=== PATIENT | female | born 1955 | race Caucasian/White ===

== ENCOUNTER 2018-02-12 17:05 | Inpatient (IN) | payer SELFPAY ==
[~2018-02-12] VITALS: Ht 160 cm; Wt 79.8 kg
[2018-02-12 18:35] VITALS: BP 125/61; PULSE 91; RESP 16; TEMP 99.3; O2SAT 93
[2018-02-12] MEDS ORDERED: RITA20TA PO (19:05)
[2018-02-12] MEDS ORDERED: CELE40TA PO (19:05)
[2018-02-12] MEDS ORDERED: LISI10TA PO (19:05)
[2018-02-12] MEDS ORDERED: CLON1TAB PO (19:05)
[2018-02-12] MEDS ORDERED: LEVO88TA2 PO (19:05)
[2018-02-12] MEDS ORDERED: SODIUM CHLOR 0.9% 1000 ML INJ 1,000 ML IV SCH (19:07)
--- NOTE | 2018-02-12 19:08 | PD ---
HPI Chief Complaint: GI Complaint Time Seen by Provider: 18:44 Travel History International Travel<30 days: No Contact w/Intl Traveler<30days: No Traveled to known affect area: No History of Present Illness HPI 62-year-old female with history of hypertension and thyroid disease presents emergency department for evaluation of generalized weakness. Patient states about 2 weeks ago she started what is called the Miriam diet. She had been doing this and compliant with the regimen and developed joint pain and stiffness. She has felt increasingly tired and weak. She states on Monday, 3 days ago, she passed out. There is no obvious trauma sustained during this. She saw her primary care provider today. She did report darker bowel movements over the last 2-3 days. With knowledge of this, her primary care provider advised she come to the emergency department. Patient denies any significant pain. Just an achy joint moderate pain that is constant. She does report subjective fever with chills over the last 2-3 days as well. She tells me that she is so weak she can hardly do her daily routines. She denies any chest pain or tightness. She denies any nausea or vomiting. She has had no urinary symptoms or diarrhea. She has no other symptoms to report. [facility] Past Medical History ADD: Yes ADHD: Yes Hypertension: Yes Thyroid Disease: Yes Tetanus Vaccination: > 5 Years Influenza Vaccination: No Past Surgical History Section: Yes Social History Alcohol Use: Yes Tobacco Use: No Substance Use: No Allergies-Medications (Allergen,Severity, Reaction): Coded Allergies: ceftriaxone (Verified Allergy, Unknown, 02/12/18) Reported Meds & Prescriptions Reported Meds & Active Scripts Active Reported Levothyroxine (Levothyroxine Sodium) 88 Mcg Tab 88 Mcg PO DAILY Ritalin IR (Methylphenidate HCl) 20 Mg Tab 30 Mg PO DAILY Lisinopril-Hctz 10-12.5 Mg Tab 1 Tab PO DAILY Celexa (Citalopram Hydrobromide) 40 Mg Tab 40 Mg PO HS Clonazepam 1 Mg Tab 1 Mg PO HS Review of Systems Except as stated in HPI: all other systems reviewed are Neg Physical Exam Narrative GENERAL: Ill-appearing female patient, lying in bed, in no acute distress SKIN: Focused skin assessment warm/dry. HEAD: Atraumatic. Normocephalic. EYES: Pupils equal and round. No scleral icterus. No injection or drainage. ENT: No nasal bleeding or discharge. Mucous membranes pink and moist. NECK: Trachea midline. No JVD. CARDIOVASCULAR: Elevated rate. RESPIRATORY: No accessory muscle use. Diminished to auscultation. Breath sounds equal bilaterally. GASTROINTESTINAL: Abdomen soft, non-tender, nondistended. No guarding. No rebound tenderness hepatic and splenic margins not palpable. RECTAL EXAM: No masses or tenderness, stool is dark brown black. MUSCULOSKELETAL: No obvious deformities. No clubbing. No cyanosis. No edema. NEUROLOGICAL: Awake and alert. No obvious cranial nerve deficits. Motor grossly within normal limits. Normal speech. PSYCHIATRIC: Appropriate mood and affect; insight and judgment normal. Data Data Last Documented VS Vital Signs Date Time Temp Pulse Resp B/P (MAP) Pulse Ox O2 Delivery O2 Flow Rate FiO2 02/12/18 19:10 85 16 115/57 (76) 96 02/12/18 18:35 99.3 Orders Orders Complete Blood Count With Diff (02/12/18 19:07) Comprehensive Metabolic Panel (02/12/18 19:07) Lipase (02/12/18 19:07) Ammonia (02/12/18 19:07) Prothrombin Time / Inr (Pt) (02/12/18 19:07) Act Partial Throm Time (Ptt) (02/12/18 19:07) Urinalysis - C+S If Indicated (02/12/18 19:07) Type And Screen (02/12/18 19:07) Chest, Single Ap (02/12/18 19:07) Ecg Monitoring (02/12/18 19:07) Iv Access Insert/Monitor (02/12/18 19:07) Oximetry (02/12/18 19:07) Sodium Chlor 0.9% 1000 Ml Inj (Ns 1000 M (02/12/18 19:07) Sodium Chloride 0.9% Flush (Ns Flush) (02/12/18 19:15) Creatine Kinase (Cpk) (02/12/18 20:50) Azithromycin Inj (Zithromax Inj) (02/12/18 21:00) Admit Order (Ed Use Only) (02/12/18 20:57) Labs Laboratory Tests Test 02/12/18 19:10 White Blood Count 15.5 TH/MM3 Red Blood Count 4.20 MIL/MM3 Hemoglobin 13.4 GM/DL Hematocrit 38.2 % Mean Corpuscular Volume 90.9 FL Mean Corpuscular Hemoglobin 31.9 PG Mean Corpuscular Hemoglobin Concent 35.1 % Red Cell Distribution Width 13.6 % Platelet Count 241 TH/MM3 Mean Platelet Volume 10.5 FL Neutrophils (%) (Auto) 86.0 % Lymphocytes (%) (Auto) 6.1 % Monocytes (%) (Auto) 7.8 % Eosinophils (%) (Auto) 0.0 % Basophils (%) (Auto) 0.1 % Neutrophils # (Auto) 13.4 TH/MM3 Lymphocytes # (Auto) 0.9 TH/MM3 Monocytes # (Auto) 1.2 TH/MM3 Eosinophils # (Auto) 0.0 TH/MM3 Basophils # (Auto) 0.0 TH/MM3 CBC Comment DIFF FINAL Differential Comment Prothrombin Time 10.5 SEC Prothromb Time International Ratio 1.0 RATIO Activated Partial Thromboplast Time 30.0 SEC Blood Urea Nitrogen 19 MG/DL Creatinine 1.73 MG/DL Random Glucose 107 MG/DL Total Protein 7.9 GM/DL Albumin 3.2 GM/DL Calcium Level 9.5 MG/DL Alkaline Phosphatase 93 U/L Aspartate Amino Transf (AST/SGOT) 49 U/L Alanine Aminotransferase (ALT/SGPT) 50 U/L Total Bilirubin 0.4 MG/DL Sodium Level 127 MEQ/L Potassium Level 4.0 MEQ/L Chloride Level 90 MEQ/L Carbon Dioxide Level 23.2 MEQ/L Anion Gap 14 MEQ/L Estimat Glomerular Filtration Rate 30 ML/MIN Ammonia 18 MCMOL/L Lipase 120 U/L MDM Medical Decision Making Medical Screen Exam Complete: Yes Emergency Medical Condition: Yes Medical Record Reviewed: Yes Differential Diagnosis GI bleed versus electrolyte abnormality versus rhabdomyolysis versus symptomatic anemia Narrative Course 62-year-old female presents emergency department for evaluation of generalized weakness, joint aches, and darker stools following a syncopal episode that occurred 3 days ago. Patient appears as though she does not feel well. She is mildly tachycardic. Laboratory Tests Test 02/12/18 19:10 White Blood Count 15.5 TH/MM3 Red Blood Count 4.20 MIL/MM3 Hemoglobin 13.4 GM/DL Hematocrit 38.2 % Mean Corpuscular Volume 90.9 FL Mean Corpuscular Hemoglobin 31.9 PG Mean Corpuscular Hemoglobin Concent 35.1 % Red Cell Distribution Width 13.6 % Platelet Count 241 TH/MM3 Mean Platelet Volume 10.5 FL Neutrophils (%) (Auto) 86.0 % Lymphocytes (%) (Auto) 6.1 % Monocytes (%) (Auto) 7.8 % Eosinophils (%) (Auto) 0.0 % Basophils (%) (Auto) 0.1 % Neutrophils # (Auto) 13.4 TH/MM3 Lymphocytes # (Auto) 0.9 TH/MM3 Monocytes # (Auto) 1.2 TH/MM3 Eosinophils # (Auto) 0.0 TH/MM3 Basophils # (Auto) 0.0 TH/MM3 CBC Comment DIFF FINAL Differential Comment Prothrombin Time 10.5 SEC Prothromb Time International Ratio 1.0 RATIO Activated Partial Thromboplast Time 30.0 SEC Blood Urea Nitrogen 19 MG/DL Creatinine 1.73 MG/DL Random Glucose 107 MG/DL Total Protein 7.9 GM/DL Albumin 3.2 GM/DL Calcium Level 9.5 MG/DL Alkaline Phosphatase 93 U/L Aspartate Amino Transf (AST/SGOT) 49 U/L Alanine Aminotransferase (ALT/SGPT) 50 U/L Total Bilirubin 0.4 MG/DL Sodium Level 127 MEQ/L Potassium Level 4.0 MEQ/L Chloride Level 90 MEQ/L Carbon Dioxide Level 23.2 MEQ/L Anion Gap 14 MEQ/L Estimat Glomerular Filtration Rate 30 ML/MIN Ammonia 18 MCMOL/L Lipase 120 U/L Last Impressions Chest X-Ray 02/12/181906 Signed Impressions: CONCLUSION: Right perihilar airspace disease and basilar airspace disease. Differential jalil gnosis includes pneumonic infiltrate. Close radiographic follow-up recommended to exclude underlying mass. CT recommended if there is no clinical evidence for pneumonia. I discussed the patient with my attending physician. Patient leukocytosis may be secondary to hemoconcentration. She is Hemoccult positive however after discussing patient with Dr. Gutierrez and x-ray imaging results, patient does happen to have a pneumonia. I went in and asked the patient again regarding any respiratory symptoms and she does believe she started having a cough today. Patient was given azithromycin IV at this time. She will be admitted to the hospitalist service. Diagnosis Primary Impression: Community acquired pneumonia Qualified Codes: J18.1 - Lobar pneumonia, unspecified organism Additional Impressions: GI bleed Qualified Codes: K92.2 - Gastrointestinal hemorrhage, unspecified HERMAN (acute kidney injury) Admitting Information Admitting Physician Requests: Admit Condition: Stable Lacy Tello Feb 12, 2018 19:08
[2018-02-12 19:10] VITALS: BP 115/57; O2SAT 96
[2018-02-12] MEDS ORDERED: SODIUM CHLORIDE 0.9% FLUSH 10 ML FLUSH IVF PRN (19:15)
[2018-02-12 19:41] LABS: AUTOMATED NEUTROPHIL # 13.4 TH/MM3 (1.8-7.7); BASOPHIL % 0.1 % (0.0-2.0); HEMATOCRIT 38.2 % (35.0-46.0); HEMOGLOBIN 13.4 GM/DL (11.6-15.3); LYMPH % 6.1 % (9.0-44.0); LYMPHOCYTE # 0.9 TH/MM3 (1.0-4.8); MEAN CELL VOLUME 90.9 FL (80.0-100.0); MEAN CORPUSCULAR HEMOGLOBIN 31.9 PG (27.0-34.0); MEAN CORPUSCULAR HGB CONC 35.1 % (32.0-36.0); MEAN PLATELET VOLUME 10.5 FL (7.0-11.0); MONO % 7.8 % (0.0-8.0); MONOCYTE # 1.2 TH/MM3 (0-0.9); PLATELET COUNT 241 TH/MM3 (150-450); RED CELL DISTRIBUTION WIDTH 13.6 % (11.6-17.2); WHITE BLOOD COUNT 15.5 TH/MM3 (4.0-11.0)
--- NOTE | 2018-02-12 19:43 | RADRPT ---
EXAM DATE: 02/12/2018 7:33 PM EDT AGE/SEX: 62 years / Female INDICATIONS: Short of breath. CLINICAL DATA: This is the patient's initial encounter. Patient reports that signs and symptoms have been present for 1 day and indicates a pain score of 0/10. MEDICAL/SURGICAL HISTORY: None. None. COMPARISON: No prior [place] exams available for comparison. FINDINGS: There is airspace consolidation in the right perihilar region extending to the right lung base. Left lung clear. No effusion. No pneumothorax. CONCLUSION: Right perihilar airspace disease and basilar airspace disease. Differential diagnosis includes pneumo beverly infiltrate. Close radiographic follow-up recommended to exclude underlying mass. CT recommended i f there is no clinical evidence for pneumonia. Electronically signed by: Juan Solomon MD 02/12/2018 7:41 PM EDT
[2018-02-12 19:53] LABS: PROTHROMBIN TIME - PATIENT 10.5 SEC (9.8-11.6)
[2018-02-12 19:58] LABS: ALBUMIN 3.2 GM/DL (3.4-5.0); ALT (GPT) 50 U/L (10-53); AST (GOT) 49 U/L (15-37); BICARBONATE 23.2 MEQ/L (21.0-32.0); BLOOD UREA NITROGEN 19 MG/DL (7-18); CALCIUM 9.5 MG/DL (8.5-10.1); CHLORIDE 90 MEQ/L (98-107); CREATININE 1.73 MG/DL (0.50-1.00); GLOMERULAR FILTRATION RATE 30 ML/MIN (>89); GLUCOSE,RANDOM 107 MG/DL (74-106); SODIUM (NA) 127 MEQ/L (136-145)
[2018-02-12 20:01] LABS: ALKALINE PHOSPHATASE 93 U/L (45-117); TOTAL BILIRUBIN ADULT 0.4 MG/DL (0.2-1.0); TOTAL PROTEIN 7.9 GM/DL (6.4-8.2)
[2018-02-12] MEDS ORDERED: AZITHROMYCIN INJ 500 MG in SODIUM CHLOR 0.9% 250 ML INJ 250 ML IV ONE (21:00)
[2018-02-12] MEDS ORDERED: MAGNESIUM HYDROXIDE SUSP 30 ML CUP PO PRN (21:15)
[2018-02-12] MEDS ORDERED: RESP: ALBUTEROL 2.5 MG/IPRATROPIUM 0.5 MG NEB (PRN) INH (21:15)
[2018-02-12] MEDS ORDERED: SENNOSIDES 8.6 MG TAB PO PRN (21:15)
[2018-02-12] MEDS ORDERED: BISACODYL 10 MG SUPP RECTAL PRN (21:15)
[2018-02-12] MEDS ORDERED: LACTULOSE SYRUP 20 GM/30 ML CUP PO PRN (21:15)
[2018-02-12] MEDS ORDERED: SODIUM CHLORIDE 0.9% FLUSH 10 ML FLUSH IV FLUSH PRN (21:15)
[2018-02-12] MEDS ORDERED: PANTOPRAZOLE SODIUM 40 MG VIAL IV PUSH ONE (21:15)
[2018-02-12] MEDS ORDERED: NALOXONE HCL 0.4 MG/ML AMP IV PUSH PRN (21:15)
--- NOTE | 2018-02-12 22:00 | HHI.HP ---
HPI Service [facility] Primary Care Physician Unknown Admission Diagnosis CAP; GI bleed; Syncope Diagnoses: Travel History International Travel<30 Days: No Contact w/Intl Traveler <30 Da: No Traveled to Known Affected Are: No History of Present Illness 62-year-old female with a past medical history significant for hypertension, hypothyroidism, anxiety/depression and ADHD presents to the emergency department for the evaluation of increasing weakness, body aches and fever/ chills. The patient reports she started the Miriam diet open (no sugar, lean protein) approximately 2 weeks ago. She states she started to feel bad on with body aches and had a syncopal event on Monday that she attributed to hypoglycemia as she had not had much to eat. EMS was called to the patient' s house however she did not receive any further medical treatment at that time. She has continued to have fever/chills and body aches. She reports an intermittent nonproductive cough. Positive dark/tarry stools for the past 2-3 days. She denies any chest pain or shortness of breath. No nausea/vomiting/ diarrhea. No lateralizing signs/symptoms. Review of Systems Except as stated in HPI: all other systems reviewed are Neg Past Family Social History Past Medical History Hypertension Hypothyroidism Anxiety/depression ADHD Past Surgical History D&C Thyroid irradiation Reported Medications Reported Meds & Active Scripts Active Reported Levothyroxine (Levothyroxine Sodium) 88 Mcg Tab 88 Mcg PO DAILY Ritalin IR (Methylphenidate HCl) 20 Mg Tab 30 Mg PO DAILY Lisinopril-Hctz 10-12.5 Mg Tab 1 Tab PO DAILY Celexa (Citalopram Hydrobromide) 40 Mg Tab 40 Mg PO HS Clonazepam 1 Mg Tab 1 Mg PO HS Allergies: Coded Allergies: ceftriaxone (Verified Allergy, Unknown, 02/12/18) Family History Both parents with hypertension. Father and brother both with colon cancer. Social History Drinks approximately 2 drinks per night until 2 weeks ago. Denies tobacco and illicit drugs. Physical Exam Vital Signs Vital Signs Date Time Temp Pulse Resp B/P (MAP) Pulse Ox O2 Delivery O2 Flow Rate FiO2 02/12/18 19:10 85 16 115/57 (76) 96 02/12/18 18:35 99.3 91 16 125/61 (82) 93 Physical Exam GENERAL: female lying in bed SKIN: No rashes, ecchymoses or lesions. Cool and dry. HEAD: Atraumatic. Normocephalic. No temporal or scalp tenderness. EYES: Pupils equal round and reactive. Extraocular motions intact. No scleral icterus. No injection or drainage. ENT: Nose without bleeding, purulent drainage or septal hematoma. Throat without erythema, tonsillar hypertrophy or exudate. Uvula midline. Airway patent. NECK: Trachea midline. No JVD or lymphadenopathy. Supple, nontender, no meningeal signs. CARDIOVASCULAR: Regular rate and rhythm without murmurs, gallops, or rubs. RESPIRATORY: Clear to auscultation. Breath sounds equal bilaterally. No wheezes , rales, or rhonchi. GASTROINTESTINAL: Abdomen soft, non-tender, nondistended. No hepato-splenomegaly , or palpable masses. No guarding. MUSCULOSKELETAL: Extremities without clubbing, cyanosis, or edema. No joint tenderness, effusion, or edema noted. No calf tenderness. NEUROLOGICAL: Awake and alert. Cranial nerves II through XII intact. Motor and sensory grossly within normal limits. Normal speech. Laboratory Laboratory Tests Test 02/12/18 19:10 White Blood Count 15.5 Red Blood Count 4.20 Hemoglobin 13.4 Hematocrit 38.2 Mean Corpuscular Volume 90.9 Mean Corpuscular Hemoglobin 31.9 Mean Corpuscular Hemoglobin Concent 35.1 Red Cell Distribution Width 13.6 Platelet Count 241 Mean Platelet Volume 10.5 Neutrophils (%) (Auto) 86.0 Lymphocytes (%) (Auto) 6.1 Monocytes (%) (Auto) 7.8 Eosinophils (%) (Auto) 0.0 Basophils (%) (Auto) 0.1 Neutrophils # (Auto) 13.4 Lymphocytes # (Auto) 0.9 Monocytes # (Auto) 1.2 Eosinophils # (Auto) 0.0 Basophils # (Auto) 0.0 CBC Comment DIFF FINAL Differential Comment Prothrombin Time 10.5 Prothromb Time International Ratio 1.0 Activated Partial Thromboplast Time 30.0 Blood Urea Nitrogen 19 Creatinine 1.73 Random Glucose 107 Total Protein 7.9 Albumin 3.2 Calcium Level 9.5 Alkaline Phosphatase 93 Aspartate Amino Transf (AST/SGOT) 49 Alanine Aminotransferase (ALT/SGPT) 50 Total Bilirubin 0.4 Sodium Level 127 Potassium Level 4.0 Chloride Level 90 Carbon Dioxide Level 23.2 Anion Gap 14 Estimat Glomerular Filtration Rate 30 Ammonia 18 Lipase 120 Result Diagram: 02/12/18190902/12/181909 Caprini VTE Risk Assessment Caprini VTE Risk Assessment: Mod/High Risk (score >= 2) Caprini Risk Assessment Model Point Value = 1 Point Value = 2 Point Value = 3 Point Value = 5 Age 41-60 Minor surgery BMI > 25 kg/m2 Swollen legs Varicose veins or History of unexplained or recurrent spontaneous Oral contraceptives or hormone replacement Sepsis (< 1 month) Serious lung disease, including pneumonia (< 1 month) Abnormal pulmonary function Acute myocardial infarction Congestive heart failure (< 1 month) History of inflammatory bowel disease Medical patient at bed rest Age 61-74 Arthroscopic surgery Major open surgery (> 45 min) Laparoscopic surgery (> 45 min) Malignancy Confined to bed (> 72 hours) Immobilizing plaster cast Central venous access Age >= 75 History of VTE Family history of VTE Factor V Leiden Prothrombin [id number] Lupus anticoagulant Anticardiolipin antibodies Elevated serum homocysteine Heparin-induced thrombocytopenia Other congenital or acquired thrombophilia Stroke (< 1 month) Elective arthroplasty Hip, pelvis, or leg fracture Acute spinal cord injury (< 1 month) Prophylaxis Regimen Total Risk Factor Score Risk Level Prophylaxis Regimen 0-1 Low Early ambulation 2 Moderate Order ONE of the following: *Sequential Compression Device (SCD) *Heparin 5000 units SQ BID 3-4 Higher Order ONE of the following medications: *Heparin 5000 units SQ TID *Enoxaparin/Lovenox 40 mg SQ daily (WT < 150 kg, CrCl > 30 mL/min) *Enoxaparin/Lovenox 30 mg SQ daily (WT < 150 kg, CrCl > 10-29 mL/min) *Enoxaparin/Lovenox 30 mg SQ BID (WT < 150 kg, CrCl > 30 mL/min) AND/OR *Sequential Compression Device (SCD) 5 or more Highest Order ONE of the following medications: *Heparin 5000 units SQ TID (Preferred with Epidurals) *Enoxaparin/Lovenox 40 mg SQ daily (WT < 150 kg, CrCl > 30 mL/min) *Enoxaparin/Lovenox 30 mg SQ daily (WT < 150 kg, CrCl > 10-29 mL/min) *Enoxaparin/Lovenox 30 mg SQ BID (WT < 150 kg, CrCl > 30 mL/min) AND *Sequential Compression Device (SCD) Assessment and Plan Assessment and Plan Assessment/plan: 1. Community-acquired pneumonia Chest x-ray significant for perihilar airspace disease with possible infiltrate , personally reviewed Laila as patient allergic to ceftriaxone Duo nebjon 2. Lower GI bleed Hemoccult positive in the emergency department Patient with history of dark, tarry stools Strong family history of colon cancer Patient has never had a colonoscopy secondary to lack of insurance Gastroenterology consulted, appreciate recommendations Follow CBC -repeat at midnight 3. Hypertension Continue home medications 4. Depression/anxiety Continue home citalopram and clonazepam 5. Hypothyroidism Continue home Synthroid 6. AK I Creatinine 1.73, baseline unknown IV fluid hydration Monitor renal function FEN N.p.o. Electrolytes: Monitor and replete as needed Holding pharmacologic anticoagulation secondary to GI bleed NS at 100 cc/hour Physician Certification 2 Midnight Certification Type: Admission for Inpatient Services Order for Inpatient Services The services are ordered in accordance with Medicare regulations or non- Medicare payer requirements, as applicable. In the case of services not specified as inpatient-only, they are appropriately provided as inpatient services in accordance with the 2-midnight benchmark. Estimated LOS (days): 2 2 days is the estimated time the patient will need to remain in the hospital, assuming treatment plan goals are met and no additional complications. Post-Hospital Plan: Not yet determined Cee Gutierrez MD Feb 12, 2018 22:00
[2018-02-12] MEDS: ACETAMINOPHEN 325 MG TAB PO PRN (22:18)
[2018-02-12 22:19] VITALS: BP 136/59; PULSE 114; RESP 20; TEMP 102.8; O2SAT 95
[2018-02-12 22:29] LABS: AMORPHOUS SEDIMENT, URINE RARE; BACTERIA, URINE FEW /hpf; BILIRUBIN, URINE NEG (NEG); BLOOD, URINE MOD (NEG); GLUCOSE,URINE NEG (NEG); HYALINE CAST, URINE 20 /lpf (RARE); KETONE, URINE 10 mg/dL (NEG); NITRITE,URINE NEG (NEG); PH, URINE 5.5 (5.0-8.5); SQUAMOUS EPITHELIAL CELL URINE 2 /hpf (0-5); URINE COLOR YELLOW (YELLW/STRAW); URINE LEUKOCYTE ESTERASE MOD (NEG)
[2018-02-12] MEDS: SODIUM CHLOR 0.9% 1000 ML INJ 1,000 ML IV SCH (22:51)
[2018-02-12] MEDS ORDERED: CITALOPRAM HYDROBROMIDE 40 MG TAB PO ONE (23:45)
[2018-02-12] MEDS ORDERED: clonazePAM 1 MG TAB PO ONE (23:45)
[2018-02-12 23:47] VITALS: PULSE 96
[2018-02-12 23:52] LABS: AUTOMATED NEUTROPHIL # 11.5 TH/MM3 (1.8-7.7); BASOPHIL % 0.1 % (0.0-2.0); HEMATOCRIT 33.7 % (35.0-46.0); HEMOGLOBIN 11.6 GM/DL (11.6-15.3); LYMPH % 7.3 % (9.0-44.0); MEAN CELL VOLUME 89.6 FL (80.0-100.0); MEAN CORPUSCULAR HEMOGLOBIN 30.9 PG (27.0-34.0); MEAN CORPUSCULAR HGB CONC 34.5 % (32.0-36.0); MEAN PLATELET VOLUME 9.8 FL (7.0-11.0); MONO % 6.9 % (0.0-8.0); MONOCYTE # 0.9 TH/MM3 (0-0.9); NEUT % 85.7 % (16.0-70.0); PLATELET COUNT 220 TH/MM3 (150-450); RED BLOOD COUNT 3.76 MIL/MM3 (4.00-5.30); RED CELL DISTRIBUTION WIDTH 13.2 % (11.6-17.2); WHITE BLOOD COUNT 13.5 TH/MM3 (4.0-11.0)
[2018-02-13] VITALS (10 sets, daily range): BP systolic 88–126; BP diastolic 50–72; PULSE 71–94; RESP 16–18; TEMP 97.7–100.5; O2SAT 92–98
[2018-02-13] MEDS: LEVOFLOXACIN 750 MG PREMIX INJ 150 ML IV SCH (04:02)
[2018-02-13] MEDS: LEVOTHYROXINE SODIUM 88 MCG TAB PO SCH (05:53)
[2018-02-13] MEDS: SODIUM CHLOR 0.9% 1000 ML INJ 1,000 ML IV SCH ×4 (07:30→21:44)
[2018-02-13 07:57] LABS: AUTOMATED NEUTROPHIL # 11.3 TH/MM3 (1.8-7.7); BASOPHIL % 0.1 % (0.0-2.0); HEMATOCRIT 36.8 % (35.0-46.0); HEMOGLOBIN 12.5 GM/DL (11.6-15.3); LYMPH % 6.2 % (9.0-44.0); LYMPHOCYTE # 0.8 TH/MM3 (1.0-4.8); MEAN CELL VOLUME 90.9 FL (80.0-100.0); MEAN CORPUSCULAR HEMOGLOBIN 30.8 PG (27.0-34.0); MEAN CORPUSCULAR HGB CONC 33.9 % (32.0-36.0); MEAN PLATELET VOLUME 10.3 FL (7.0-11.0); MONO % 6.6 % (0.0-8.0); MONOCYTE # 0.9 TH/MM3 (0-0.9); NEUT % 87.1 % (16.0-70.0); PLATELET COUNT 244 TH/MM3 (150-450); RED BLOOD COUNT 4.05 MIL/MM3 (4.00-5.30); RED CELL DISTRIBUTION WIDTH 13.3 % (11.6-17.2)
[2018-02-13 08:26] LABS: CALCIUM 8.7 MG/DL (8.5-10.1); CREATININE 1.09 MG/DL (0.50-1.00)
[2018-02-13] MEDS ORDERED: NON-FORMULARY DRUG (Lisinopril-Hctz 1 TAB) PO SCH (09:00)
--- NOTE | 2018-02-13 09:01 | PD.CONS ---
HPI History of Present Illness This is a 62 year old F with PMH significant for HTN, hypothyroidism, anxiety/ depression and ADHD who presented to the ER yesterday, sent by her PCP for evaluation of weakness, body aches, and chills. Pt saw her PCP on Monday for a routine check up and was feeling fine, she began feeling bad on . Reports a syncopal episode on Monday that she attributed to hypoglycemia due to the diet she has been on for the past two weeks (Miriam diet). EMS was called to the house but patient declined transfer to the hospital at that time. Our service has been consulted to evaluate patient for reports of black, tarry stools. Pt reports she has been having multiple, small, black tarry stools for the past 2-3 days. Reports one episode of nausea and emesis after syncopal episode, denies hematemesis. Denies acid reflux, heartburn, abdominal pain. Denies recent unintentional weight loss, states has lost 4 pound since starting her diet. Denies history of GIB. Was drinking 2 liquor drinks a night, five times a week prior to starting her diet. Denies smoking. Of note, has been taking Ibuprofen twice a day since symptoms began. Family history significant for colon cancer, both her father and brother. Denies ever having EGD or colonoscopy in the past. ([place]) PFSH Past Medical History Hypertension Hypothyroidism Anxiety/depression ADHD Past Surgical History D&C Thyroid irradiation ([place]) Coded Allergies: ceftriaxone (Verified Allergy, Unknown, 02/13/18) Family History Both parents with hypertension. Father and brother both with colon cancer. Social History Drinks approximately 2 drinks per night, five nights a week until 2 weeks ago. Denies tobacco and illicit drugs. ([place] Trejo) Review of Systems Gastrointestinal: COMPLAINS OF: Black stools, Nausea, Vomiting (one episode ), DENIES: Abdominal pain, Bloody stools, Constipation, Diarrhea, Difficulty Swallowing, Anorexia, Odynophagia, Swelling of Abdomen, Heartburn, Hematemesis ( [place]jo) GI Exam Vitals I&O Vital Signs Date Time Temp Pulse Resp B/P (MAP) Pulse Ox O2 Delivery O2 Flow Rate FiO2 02/13/18 04:00 97.7 76 16 118/69 (85) 94 02/13/18 03:54 74 02/13/18 00:00 Room Air 02/13/18 00:00 98.7 82 16 110/56 (74) 94 02/12/18 23:47 96 02/12/18 22:19 Room Air 02/12/18 22:19 102.8 114 20 136/59 (84) 95 02/12/18 22:10 02/12/18 19:10 85 16 115/57 (76) 96 02/12/18 18:35 99.3 91 16 125/61 (82) 93 I/O 02/12/18 02/12/18 02/12/18 02/13/18 02/13/18 02/13/18 07:00 15:00 23:00 07:00 15:00 23:00 Intake Total 1250 ml Output Total 400 ml Balance 1250 ml -400 ml Intake IV Total 1250 ml Output Urine Total 400 ml Imaging Last Impressions Chest X-Ray 02/12/18 [id number] Signed Impressions: CONCLUSION: Right perihilar airspace disease and basilar airspace disease. Differential jalil gnosis includes pneumonic infiltrate. Close radiographic follow-up recommended to exclude underlying mass. CT recommended if there is no clinical evidence for pneumonia. Laboratory Test 02/12/18 19:10 02/12/18 21:50 02/12/18 23:30 02/13/18 07:01 White Blood Count 15.5 TH/MM3 13.5 TH/MM3 13.0 TH/MM3 Red Blood Count 4.20 MIL/MM3 3.76 MIL/MM3 4.05 MIL/MM3 Hemoglobin 13.4 GM/DL 11.6 GM/DL 12.5 GM/DL Hematocrit 38.2 % 33.7 % 36.8 % Mean Corpuscular Volume 90.9 FL 89.6 FL 90.9 FL Mean Corpuscular Hemoglobin 31.9 PG 30.9 PG 30.8 PG Mean Corpuscular Hemoglobin Concent 35.1 % 34.5 % 33.9 % Red Cell Distribution Width 13.6 % 13.2 % 13.3 % Platelet Count 241 TH/MM3 220 TH/MM3 244 TH/MM3 Mean Platelet Volume 10.5 FL 9.8 FL 10.3 FL Neutrophils (%) (Auto) 86.0 % 85.7 % 87.1 % Lymphocytes (%) (Auto) 6.1 % 7.3 % 6.2 % Monocytes (%) (Auto) 7.8 % 6.9 % 6.6 % Eosinophils (%) (Auto) 0.0 % 0.0 % 0.0 % Basophils (%) (Auto) 0.1 % 0.1 % 0.1 % Neutrophils # (Auto) 13.4 TH/MM3 11.5 TH/MM3 11.3 TH/MM3 Lymphocytes # (Auto) 0.9 TH/MM3 1.0 TH/MM3 0.8 TH/MM3 Monocytes # (Auto) 1.2 TH/MM3 0.9 TH/MM3 0.9 TH/MM3 Eosinophils # (Auto) 0.0 TH/MM3 0.0 TH/MM3 0.0 TH/MM3 Basophils # (Auto) 0.0 TH/MM3 0.0 TH/MM3 0.0 TH/MM3 CBC Comment DIFF FINAL DIFF FINAL DIFF FINAL Differential Comment Prothrombin Time 10.5 SEC Prothromb Time International Ratio 1.0 RATIO Activated Partial Thromboplast Time 30.0 SEC Blood Urea Nitrogen 19 MG/DL 16 MG/DL Creatinine 1.73 MG/DL 1.09 MG/DL Random Glucose 107 MG/DL 104 MG/DL Total Protein 7.9 GM/DL Albumin 3.2 GM/DL Calcium Level 9.5 MG/DL 8.7 MG/DL Alkaline Phosphatase 93 U/L Aspartate Amino Transf (AST/SGOT) 49 U/L Alanine Aminotransferase (ALT/SGPT) 50 U/L Total Bilirubin 0.4 MG/DL Sodium Level 127 MEQ/L 131 MEQ/L Potassium Level 4.0 MEQ/L 3.5 MEQ/L Chloride Level 90 MEQ/L 95 MEQ/L Carbon Dioxide Level 23.2 MEQ/L 23.0 MEQ/L Anion Gap 14 MEQ/L 13 MEQ/L Estimat Glomerular Filtration Rate 30 ML/MIN 51 ML/MIN Ammonia 18 MCMOL/L Total Creatine Kinase 113 U/L Lipase 120 U/L Urine Color YELLOW Urine Turbidity HAZY Urine pH 5.5 Urine Specific [place] 1.015 Urine Protein 30 mg/dL Urine Glucose (UA) NEG mg/dL Urine Ketones 10 mg/dL Urine Occult Blood MOD Urine Nitrite NEG Urine Bilirubin NEG Urine Urobilinogen LESS THAN 2.0 MG/DL Urine Leukocyte Esterase MOD Urine RBC 4 /hpf Urine WBC 40 /hpf Urine Squamous Epithelial Cells 2 /hpf Urine Amorphous Sediment RARE Urine Bacteria FEW /hpf Urine Hyaline Casts 20 /lpf Microscopic Urinalysis Comment CULTURE INDICATED Date/Time Source Procedure Growth Status 02/12/18 21:50 Urine Random Urine Urine Culture Pending Received Physical Examination HEENT: Normocephalic; atraumatic CHEST: Even/unlabored CARDIAC: RRR ABDOMEN: Soft, nondistended, nontender; bowel sounds active EXTREMITIES: No clubbing, cyanosis, or edema. SKIN: Diaphoretic ADJUNCT LECTURER: Alert and oriented times three. ([place] Trejo) Assessment and Plan Plan Assessment: - Black, tarry stools for the past 2-3 days Pt has not been feeling well since - chills, sweats, body aches and overall weakness. Had a syncopal episode on Monday, thought due to hypoglycemia because she has been on a diet for two weeks, EMS responded but she declined transfer to the hospital. One episode of nausea with emesis after syncopal episode, denies hematemesis. Denies abdominal pain, acid reflux, heartburn. Denies sick contacts. Denies history of GIB. Has never had EGD or colonoscopy. Of note, has been taking Ibuprofen twice a day since symptoms began. Was drinking 2 liquor drinks five times a week until starting diet. Denies smoking. Plan: EGD today Obtain consent Keep NPO Monitor H/H Protonix Further recommendations based on findings of above Pt has been seen and examined by myself and Dr. Millan and this note is written on her behalf ([place] Trejo) Physician Comments Seen and examined, plan as above. Discussed the need for EGD, will proceed today . Further recommendations to follow. Thank you for the consult. (Camille Millan MD) [place] Feb 13, 2018 09:01 Camille Millan MD Feb 13, 2018 13:06
[2018-02-13] MEDS: LISINOPRIL 10 MG TAB PO SCH (09:33)
[2018-02-13] MEDS: HYDROCHLOROTHIAZIDE 25 MG TAB PO SCH (09:33)
[2018-02-13] MEDS: PANTOPRAZOLE SODIUM 40 MG VIAL IV PUSH SCH ×2 (09:34→21:44)
[2018-02-13] MEDS: SODIUM CHLORIDE 0.9% FLUSH 10 ML FLUSH IV FLUSH SCH ×2 (09:34→21:00)
[2018-02-13] MEDS: RESP: ALBUTEROL 2.5 MG/IPRATROPIUM 0.5 MG NEB (SCH) INH ×3 (09:47→21:11)
[2018-02-13] MEDS ORDERED: PROPOFOL 200 MG/20 ML AMP IV ONE (12:00)
[2018-02-13] MEDS ORDERED: LIDOCAINE HCL 1% PF 5 ML SYRINGE OTHER ONE (12:00)
[2018-02-13] MEDS ORDERED: METOPROLOL TARTRATE 25 MG TAB PO PRN (13:00)
[2018-02-13] MEDS ORDERED: POVIDONE IODINE 5% (ANTISEPSIS KIT) 4 APPLICATIONS EACH NARE PRN (13:00)
[2018-02-13] MEDS ORDERED: CHLORHEXIDINE GLUCONATE 2 % 1 PACK (2 CLOTHS) TOPICAL PRN (13:00)
[2018-02-13] MEDS ORDERED: LACTATED RINGER'S 1000 ML IV PRN (13:00)
[2018-02-13] MEDS ORDERED: SODIUM CHLORID 0.9% 500 ML IV PRN (13:00)
--- NOTE | 2018-02-13 13:10 | HHI.PR ---
Subjective Remarks 1310hrs: Attempted to see patient, however gone for GI procedure. Will try again later. 1600hrs: Patient seen in room with her at bedside. She is status post EGD. She reports just feeling very weak and tired. She denies any current fevers or chills, but was having subjective fevers at home. She reports continued nonproductive cough. She denies any chest pain, shortness of breath, or wheezing. She denies any current abdominal pain, nausea/vomiting, or diarrhea. She has only been able to tolerate a popsicle since her procedure. She has no other medical complaints at this time. Objective Vitals Vital Signs Date Time Temp Pulse Resp B/P (MAP) Pulse Ox O2 Delivery O2 Flow Rate FiO2 02/13/18 12:00 98.4 94 16 126/72 (90) 94 02/13/18 08:00 98.4 94 16 126/72 (90) 94 02/13/18 04:00 97.7 76 16 118/69 (85) 94 02/13/18 03:54 74 02/13/18 00:00 Room Air 02/13/18 00:00 98.7 82 16 110/56 (74) 94 02/12/18 23:47 96 02/12/18 22:19 Room Air 02/12/18 22:19 102.8 114 20 136/59 (84) 95 02/12/18 22:10 02/12/18 19:10 85 16 115/57 (76) 96 02/12/18 18:35 99.3 91 16 125/61 (82) 93 I/O 02/12/18 02/12/18 02/12/18 02/13/18 02/13/18 02/13/18 07:00 15:00 23:00 07:00 15:00 23:00 Intake Total 1250 ml Output Total 400 ml Balance 1250 ml -400 ml Intake IV Total 1250 ml Output Urine Total 400 ml Result Diagram: 02/13/18 0702/13/18 07 Imaging Last Impressions Chest X-Ray 02/12/18 190 Signed Impressions: CONCLUSION: Right perihilar airspace disease and basilar airspace disease. Differential jalil gnosis includes pneumonic infiltrate. Close radiographic follow-up recommended to exclude underlying mass. CT recommended if there is no clinical evidence for pneumonia. Objective Remarks GENERAL: Well-nourished, well-developed pleasant female patient in [facility]. SKIN: Warm and dry. No rash. HEENT: Normocephalic. Atraumatic. Pupils equal and round. Mucous membranes pink and moist. CARDIOVASCULAR: Regular rate and rhythm. No murmur appreciated. RESPIRATORY: No accessory muscle use. Clear to auscultation. Breath sounds equal bilaterally. GASTROINTESTINAL: Abdomen soft, non-tender, nondistended. Normoactive bowel sounds x4. MUSCULOSKELETAL: No obvious deformities. Extremities without clubbing, cyanosis , or edema. NEUROLOGICAL: Awake and alert. No obvious cranial nerve deficits. Moving all extremities spontaneously. Normal speech. PSYCHIATRIC: Appropriate mood and affect; insight and judgment normal. Procedures 02/13/18 -EGD by Dr. Millan showed multiple medium sized nonbleeding ulcers in the gastric antrum and gastric body, biopsies taken, normal esophagus, normal duodenum Medications and IVs Current Medications Medications (Trade) Dose Ordered Sig/Shilo Route Start Time Stop Time Status Last Admin Sodium Chloride 1,000 ml @ 100 mls/hr Q10H IV 02/12/18 21:30 02/12/18 22:51 (NS Flush) 2 ml UNSCH PRN IV FLUSH 02/12/18 21:15 (NS Flush) 2 ml BID IV FLUSH 02/13/18 09:00 02/13/18 09:34 (Tylenol) 650 mg Q4H PRN PO 02/12/18 21:15 02/13/18 14:21 (Narcan Inj) 0.4 mg UNSCH PRN IV PUSH 02/12/18 21:15 (Milk Of Magnesia Liq) 30 ml Q12H PRN PO 02/12/18 21:15 (Senokot) 17.2 mg Q12H PRN PO 02/12/18 21:15 (Dulcolax Supp) 10 mg DAILY PRN RECTAL 02/12/18 21:15 (Lactulose Liq) 30 ml DAILY PRN PO 02/12/18 21:15 (Duoneb Neb) 1 ampule Q6HR NEB INH 02/12/18 22:00 02/13/18 15:34 (Duoneb Neb) 1 ampule Q4HR NEB PRN INH 02/12/18 21:15 (Protonix Inj) 40 mg Q12H IV PUSH 02/13/18 09:00 02/13/18 09:34 Levofloxacin/ Dextrose 150 ml @ 100 mls/hr Q24H IV 02/13/18 05:00 02/13/18 04:02 (CeleXA) 40 mg HS PO 02/13/18 21:00 (KlonoPIN) 1 mg HS PO 02/13/18 21:00 (Synthroid) 88 mcg DAILY@0600 PO 02/13/18 06:00 02/13/18 05:53 (Prinivil) 10 mg DAILY PO 02/13/18 09:00 02/13/18 09:33 (Hydrodiuril) 12.5 mg DAILY PO 02/13/18 09:00 02/13/18 09:33 Lactated Ringer's 1,000 ml @ 30 mls/hr Q24H PRN IV 02/13/18 13:00 02/16/18 12:59 Sodium Chloride 500 ml @ 30 mls/hr [id number] PRN IV 02/13/18 13:00 02/16/18 12:59 (Lopressor) 25 mg HEAD CASHIER PRN PO 02/13/18 13:00 02/16/18 12:59 (Betadine 5% Antisepsis Kit) 1 applic HEAD CASHIER PRN EACH NARE 02/13/18 13:00 02/16/18 12:59 (Chlorhexidine 2% Cloth) 3 pack HEAD CASHIER PRN TOPICAL 02/13/18 13:00 02/16/18 12:59 A/P Assessment and Plan 62-year-old female with history of hypertension, hypothyroidism, anxiety, depression, ADHD, presents with increasing weakness, body aches, fever/chills. GI bleed: Hemoglobin stable at 13.4, however patient reporting black stools, Hemoccult positive in the ED -Monitor H&H, serial hemoglobin 13.4 --> 11.6 --> 12.5 -Continue on IV Protonix 40 mg bid -Supportive treatment with IVF hydration, antiemetics as needed, pain control as needed -Consult GI, appreciate assistance -02/13/18 -EGD by Dr. Millan showed multiple medium sized nonbleeding ulcers in the gastric antrum and gastric body, biopsies taken, normal esophagus, normal duodenum -Advance diet to clear liquids for now Sepsis with community-acquired pneumonia: Meets sepsis criteria with leukocytosis WBC 15.5K, fever Tmax 102.8, tachycardia HR 114, suspected source - pneumonia -CXR reviewed, shows right perihilar airspace disease and basilar airspace disease suspicious for infiltrate -Of note, radiology recommends close radiographic follow-up recommended to exclude underlying mass -Continue on antibiotics with IV Levaquin (allergy to ceftriaxone) -Oxygen as needed -check urinary legionella and pneumococcal antigens -check blood cultures and lactic acid -continue IVF hydration -Monitor for improvement Sepsis with UTI: UA with mod leuks and WBCs. With sepsis criteria as above. -Continue on IV Levaquin for now -Await urine culture HERMAN: Creatinine 1.73 upon arrival, no previous labs to compare. Likely secondary to dehydration from recent poor oral intake. -Given IV fluid hydration -Avoid nephrotoxins -Repeat BMP shows improvement with creatinine 1.09 -Continue to monitor renal function Hyponatremia: Acute. Sodium 127 upon arrival. Likely secondary to dehydration from recent poor oral intake -Given IV fluid hydration with normal saline -Repeat BMP shows some improvement, sodium 131 today -Continue to monitor Hypertension: Chronic, BP borderline hypotensive -continue patient's lisionpril, hctz with hold parameters Anxiety/Depression: Chronic -continue patient's celexa and clonazepam Hypothyroidism: Chronic -continue patient's levothyroxine DVT Prophylaxis: teds/SCDs; avoid chemoprophylaxis with GI bleeding Discharge Planning Discharge pending further clinical improvement. Likely needs additional 2-3 days of hospitalization for IV antibiotics and await cultures. Deb Kelley PA-C Feb 13, 2018 1:09 pm
--- NOTE | 2018-02-13 13:18 | GIPROC ---
[facility] [address] [facility]. [facility], [address] EGD PROCEDURE REPORT EXAM DATE: 02/13/2018 PATIENT NAME: Prema Michele MR #: [id number] BIRTHDATE: 1955 ATTENDING: Camille Millan MD ORDER #: [id number] DIGITAL PRODUCT SPECIALIST: Jim Holbrook and Sammie Walters STATUS: inpatient INDICATIONS: The patient is a 62 yr old female here for an EGD due to hematemesis PROCEDURE PERFORMED: EGD w/ biopsy MEDICATIONS: None and Per Anesthesia. TOPICAL ANESTHETIC: none CONSENT: The patient understands the risks and benefits of the procedure and understands that these risks include, but are not limited to: sedation, allergic reaction, infection, perforation and/or bleeding. Alternative means of evaluation and treatment include, among others: physical exam, x-rays, and/or surgical intervention. The patient elects to proceed with this endoscopic procedure. medical equipment was checked for proper function. Hand hygiene and appropriate measures for infection prevention was taken. After the risks, benefits and alternatives of the procedure were thoroughly explained, Informed consent was verified, confirmed and timeout was successfully executed by the treatment team. The patient was anesthetized with topical anesthesia and the Pentax [id number] endoscope was introduced through the mouth and advanced to the second portion of the duodenum. Retroflexion was performed and was normal The gastroscope was then slowly withdrawn and removed. ESOPHAGUS: The mucosa of the esophagus appeared normal. STOMACH: Multiple medium sized non-bleeding, linear, deep and clean-based ulcers were found in the gastric antrum and gastric body. Biopsies were taken at edge of the ulcers and at the center of the ulcers. DUODENUM: The duodenal mucosa appeared normal in the 2nd part of the duodenum, duodenal bulb, and 3rd part duodenum. ADVERSE EVENTS: There were no complications. IMPRESSIONS: 1. The esophagus appeared normal 2. Multiple medium sized ulcers were found in the gastric antrum and gastric body; biopsies were taken 3. Normal duodenal mucosa in the 2nd part of the duodenum, duodenal bulb, and 3rd part duodenum 4. Retroflexion was performed and was normal RECOMMENDATIONS: 1. Await biopsy results. Biopsy results will not be ready for 7-10 days. If you don't hear from us in two weeks, call our office for biopsy results. 2. Continue PPI 3. Avoid NSAIDS PATIENT CONDITION: stable DISPOSITION: Observation REPEAT EXAM: NONE Camille Millan MD eSigned: Camille Millan MD 02/13/2018 1:18 PM cc: PATIENT NAME: Prema Michele MR#: [id number]
[2018-02-13] MEDS: ACETAMINOPHEN 325 MG TAB PO PRN (14:21)
--- NOTE | 2018-02-13 17:18 | EKG ---
Date Performed: 02/13/2018 Time Performed: 10:34:32 PTAGE: 62 years EKG: Sinus rhythm with PVC(s). Leftward axis Anteroseptal Q waves Abnormal ECG Since the PREVIOUS TRACING , no significant change noted DOCTOR: Pipo Tatum Interpretating Date/Time 02/13/2018 17:17:01
[2018-02-13] MEDS: clonazePAM 1 MG TAB PO SCH (21:44)
[2018-02-13] MEDS: CITALOPRAM HYDROBROMIDE 40 MG TAB PO SCH (21:44)
[2018-02-13] MEDS ORDERED: AZITHROMYCIN INJ 500 MG in SODIUM CHLOR 0.9% 250 ML INJ 250 ML IV SCH (22:00)
[2018-02-14] VITALS (9 sets, daily range): BP systolic 107–136; BP diastolic 57–74; PULSE 63–96; RESP 16–19; TEMP 97.9–102.5; O2SAT 91–97
[2018-02-14] MEDS: ACETAMINOPHEN 325 MG TAB PO PRN (02:18)
[2018-02-14] MEDS: RESP: ALBUTEROL 2.5 MG/IPRATROPIUM 0.5 MG NEB (SCH) INH ×4 (03:10→21:11)
[2018-02-14] MEDS: LEVOFLOXACIN 750 MG PREMIX INJ 150 ML IV SCH (03:42)
[2018-02-14] MEDS: LEVOTHYROXINE SODIUM 88 MCG TAB PO SCH (05:11)
[2018-02-14 06:24] LABS: AUTOMATED NEUTROPHIL # 6.5 TH/MM3 (1.8-7.7); BASOPHIL % 0.2 % (0.0-2.0); HEMATOCRIT 31.5 % (35.0-46.0); HEMOGLOBIN 11.1 GM/DL (11.6-15.3); LYMPHOCYTE # 1.3 TH/MM3 (1.0-4.8); MEAN CELL VOLUME 90.3 FL (80.0-100.0); MEAN CORPUSCULAR HEMOGLOBIN 31.7 PG (27.0-34.0); MEAN CORPUSCULAR HGB CONC 35.1 % (32.0-36.0); MEAN PLATELET VOLUME 9.4 FL (7.0-11.0); MONO % 9.2 % (0.0-8.0); MONOCYTE # 0.8 TH/MM3 (0-0.9); NEUT % 75.6 % (16.0-70.0); PLATELET COUNT 219 TH/MM3 (150-450); RED BLOOD COUNT 3.49 MIL/MM3 (4.00-5.30); RED CELL DISTRIBUTION WIDTH 13.4 % (11.6-17.2); WHITE BLOOD COUNT 8.7 TH/MM3 (4.0-11.0)
[2018-02-14 07:04] LABS: BICARBONATE 23.3 MEQ/L (21.0-32.0); CALCIUM 8.4 MG/DL (8.5-10.1); CREATININE 0.79 MG/DL (0.50-1.00); MAGNESIUM 1.9 MG/DL (1.5-2.5)
[2018-02-14] MEDS ORDERED: POTASSIUM CHLORIDE 10 MEQ CONTROLLED RELEASE TAB PO ONE (07:45)
[2018-02-14] MEDS: SODIUM CHLORIDE 0.9% FLUSH 10 ML FLUSH IV FLUSH SCH ×2 (08:17→21:33)
[2018-02-14] MEDS: PANTOPRAZOLE SODIUM 40 MG VIAL IV PUSH SCH ×2 (08:18→21:33)
[2018-02-14] MEDS: HYDROCHLOROTHIAZIDE 25 MG TAB PO SCH (09:11)
[2018-02-14] MEDS: LISINOPRIL 10 MG TAB PO SCH (09:12)
--- NOTE | 2018-02-14 10:47 | HHI.GIFU ---
Subjective Remarks Pt resting in bed Still feels weak today Denies nausea, vomiting (+) BM since EGD, still has been noticing dark stools Tolerating liquid diet (eL Trejo) Objective Vitals I&O Vital Signs Date Time Temp Pulse Resp B/P (MAP) Pulse Ox O2 Delivery O2 Flow Rate FiO2 02/14/18 08:00 Room Air 02/14/18 05:29 98.9 02/14/18 04:00 84 02/14/18 04:00 102.5 75 17 111/64 (80) 95 02/14/18 04:00 Room Air 02/14/18 00:00 Room Air 02/14/18 00:00 99.7 88 19 107/57 (74) 97 02/14/18 00:00 86 02/13/18 20:00 98.1 75 17 100/55 (70) 98 02/13/18 20:00 71 02/13/18 20:00 Room Air 02/13/18 19:59 100/55 (70) 02/13/18 16:00 90 02/13/18 16:00 98.6 88 18 88/50 (63) 92 02/13/18 14:15 100.5 79 95/51 (66) 02/13/18 13:49 102.3 02/13/18 13:17 101.6 85 18 100/56 (71) 97 02/13/18 12:00 98.4 94 16 126/72 (90) 94 I/O 02/13/18 02/13/18 02/13/18 02/14/18 02/14/18 02/14/18 07:00 15:00 23:00 07:00 15:00 23:00 Intake Total 200 ml 1540 ml 815 ml Output Total 400 ml 400 ml 550 ml Balance -400 ml 200 ml 1140 ml 265 ml Intake Oral 240 ml IV Total 1300 ml 815 ml Other 200 ml Output Urine Total 400 ml 400 ml 550 ml # Bowel Movements 1 2 Laboratory Laboratory Tests Test 02/13/18 19:11 02/14/18 06:00 Lactic Acid Level 1.6 0.8 White Blood Count 8.7 Red Blood Count 3.49 Hemoglobin 11.1 Hematocrit 31.5 Mean Corpuscular Volume 90.3 Mean Corpuscular Hemoglobin 31.7 Mean Corpuscular Hemoglobin Concent 35.1 Red Cell Distribution Width 13.4 Platelet Count 219 Mean Platelet Volume 9.4 Neutrophils (%) (Auto) 75.6 Lymphocytes (%) (Auto) 15.0 Monocytes (%) (Auto) 9.2 Eosinophils (%) (Auto) 0.0 Basophils (%) (Auto) 0.2 Neutrophils # (Auto) 6.5 Lymphocytes # (Auto) 1.3 Monocytes # (Auto) 0.8 Eosinophils # (Auto) 0.0 Basophils # (Auto) 0.0 CBC Comment DIFF FINAL Differential Comment Blood Urea Nitrogen 10 Creatinine 0.79 Random Glucose 121 Calcium Level 8.4 Magnesium Level 1.9 Sodium Level 131 Potassium Level 2.8 Chloride Level 95 Carbon Dioxide Level 23.3 Anion Gap 13 Estimat Glomerular Filtration Rate 74 Date/Time Source Procedure Growth Status 02/13/18 19:11 Blood Peripheral Aerobic Blood Culture Pending Received 02/13/18 19:11 Blood Peripheral Anaerobic Blood Culture Pending Received 02/13/18 20:55 Urine Clean Catch Legionella Antigen Pending Received 02/13/18 20:55 Urine Clean Catch Streptococcus pneumoniae Antigen (M Pending Received Imaging Last Impressions Chest X-Ray 02/12/181906 Signed Impressions: CONCLUSION: Right perihilar airspace disease and basilar airspace disease. Differential jalil gnosis includes pneumonic infiltrate. Close radiographic follow-up recommended to exclude underlying mass. CT recommended if there is no clinical evidence for pneumonia. Physical Exam HEENT: Normocephalic; atraumatic CHEST: Even/unlabored CARDIAC: RRR ABDOMEN: Soft, nondistended, nontender; bowel sounds acitve EXTREMITIES: No clubbing, cyanosis, or edema. SKIN: Normal; no rash; no jaundice. CLERK OF WORKS: Alert and oriented times three. ([place] Trejo) Assessment and Plan Plan Assessment: - Black, tarry stools for the past 2-3 days Pt has not been feeling well since - chills, sweats, body aches and overall weakness. Had a syncopal episode on Monday, thought due to hypoglycemia because she has been on a diet for two weeks, EMS responded but she declined transfer to the hospital. One episode of nausea with emesis after syncopal episode, denies hematemesis. Denies abdominal pain, acid reflux, heartburn. Denies sick contacts. Denies history of GIB. Has never had EGD or colonoscopy. Of note, has been taking Ibuprofen twice a day since symptoms began. Was drinking 2 liquor drinks five times a week until starting diet. Denies smoking. (02/14) Pt feeling weak today. Denies nausea, vomiting, abdominal pain. Has had BMs since EGD yesterday, states still seems dark. Small drop in hgb over night, likely multifactorial given IVF during admission. Pt currently being treated for pneumonia. EGD --> Normal esophagus. Multiple medium sized ulcers were found in the gastric antrum and gastric body, biopsies taken. Normal duodenal mucosa in the 2nd part of the duodenum, duodenal bulb, and 3rd part of the duodenum. Plan: Advanced diet as tolerated EGD biopsy pending Continue Protonix Avoid NSAIDs Monitor H/H GI will sign off, please reconsult as needed Have pt follow up with GI after DC Pt has been seen and examined by myself and Dr. Millan and this note is written on her behalf ([place] Trejo) Physician Comments As above, biopsy will take few days, please notify us if needed. (Camille Millan MD) [place] Trejo Feb 14, 2018 10:47 Camille Millan MD Feb 14, 2018 13:27
[2018-02-14] MEDS: SODIUM CHLOR 0.9% 1000 ML INJ 1,000 ML IV SCH (13:04)
--- NOTE | 2018-02-14 17:20 | HHI.PR ---
Subjective Remarks 62-year-old female admitted for pneumonia and GI bleed. She states she still feels very weak, has no appetite Objective Vitals Vital Signs Date Time Temp Pulse Resp B/P (MAP) Pulse Ox O2 Delivery O2 Flow Rate FiO2 02/14/18 12:12 98.5 96 17 111/58 (75) 93 02/14/18 08:12 97.9 79 17 136/62 (86) 94 02/14/18 08:00 63 02/14/18 08:00 Room Air 02/14/18 05:29 98.9 02/14/18 04:00 84 02/14/18 04:00 102.5 75 17 111/64 (80) 95 02/14/18 04:00 Room Air 02/14/18 00:00 Room Air 02/14/18 00:00 99.7 88 19 107/57 (74) 97 02/14/18 00:00 86 02/13/18 20:00 98.1 75 17 100/55 (70) 98 02/13/18 20:00 71 02/13/18 20:00 Room Air 02/13/18 19:59 100/55 (70) I/O 02/13/18 02/13/18 02/13/18 02/14/18 02/14/18 02/14/18 07:00 15:00 23:00 07:00 15:00 23:00 Intake Total 200 ml 1540 ml 815 ml Output Total 400 ml 400 ml 550 ml Balance -400 ml 200 ml 1140 ml 265 ml Intake Oral 240 ml IV Total 1300 ml 815 ml Other 200 ml Output Urine Total 400 ml 400 ml 550 ml # Bowel Movements 1 2 Result Diagram: 02/14/18 0600 02/14/18 0600 Objective Remarks GENERAL: Well-nourished, well-developed patient. Pale-appearing, weak SKIN: Warm and dry. HEAD: Normocephalic. EYES: No scleral icterus. No injection or drainage. NECK: Supple, trachea midline. No JVD or lymphadenopathy. CARDIOVASCULAR: Regular rate and rhythm without murmurs, gallops, or rubs. RESPIRATORY: Breath sounds equal bilaterally. No accessory muscle use. GASTROINTESTINAL: Abdomen soft, non-tender, nondistended. EXTREMITIES: No cyanosis, or edema. NEUROLOGICAL: Awake, alert, and oriented x 3. Non-focal. Procedures 6/5/18 -EGD by Dr. Millan showed multiple medium sized nonbleeding ulcers in the gastric antrum and gastric body, biopsies taken, normal esophagus, normal duodenum A/P Assessment and Plan 62-year-old female presents with increasing weakness, body aches, fever/chills. GI bleed Hemoglobin slowly trending downward Continue on IV Protonix 40 mg bid 02/13/18 -EGD by Dr. Millan showed multiple medium sized nonbleeding ulcers in the gastric antrum and gastric body, biopsies taken, normal esophagus, normal duodenum Appreciate gastroenterology consult community-acquired pneumonia Chest x-ray shows right perihilar airspace disease and basilar airspace disease suspicious for infiltrate Radiology recommends close radiographic follow-up recommended to exclude underlying mass Continue IV Levaquin Oxygen as needed Sepsis with UTI Continue IV Levaquin Hypokalemia Level was 2.8 on 02/14/2018, replaced Hypertension Continue patient's lisionpril, hctz with hold parameters Anxiety/Depression Continue celexa and clonazepam Hypothyroidism Continue levothyroxine DVT Prophylaxis SCDs Discharge Planning Likely needs additional 2-3 days of hospitalization for IV antibiotics and await cultures. Dexter Thomas MD Feb 14, 2018 17:20
[2018-02-14] MEDS ORDERED: ACETAMINOPHEN/HYDROcodone 325 MG/5 MG TAB PO ONE (21:00)
[2018-02-14] MEDS: CITALOPRAM HYDROBROMIDE 40 MG TAB PO SCH (21:32)
[2018-02-14] MEDS: clonazePAM 1 MG TAB PO SCH (21:32)
[2018-02-15] VITALS (15 sets, daily range): BP systolic 109–121; BP diastolic 59–76; PULSE 65–87; RESP 17–18; TEMP 97.5–99.5; O2SAT 91–99
[2018-02-15] MEDS: SODIUM CHLOR 0.9% 1000 ML INJ 1,000 ML IV SCH ×3 (04:07→19:30)
[2018-02-15] MEDS: RESP: ALBUTEROL 2.5 MG/IPRATROPIUM 0.5 MG NEB (SCH) INH ×4 (04:41→21:42)
[2018-02-15] MEDS: LEVOFLOXACIN 750 MG PREMIX INJ 150 ML IV SCH (05:18)
[2018-02-15] MEDS: LEVOTHYROXINE SODIUM 88 MCG TAB PO SCH (05:18)
[2018-02-15 06:27] LABS: AUTOMATED NEUTROPHIL # 5.3 TH/MM3 (1.8-7.7); BASOPHIL % 0.3 % (0.0-2.0); EOSINOPHIL % 0.6 % (0.0-4.0); HEMATOCRIT 31.8 % (35.0-46.0); HEMOGLOBIN 10.9 GM/DL (11.6-15.3); LYMPH % 25.3 % (9.0-44.0); LYMPHOCYTE # 2.1 TH/MM3 (1.0-4.8); MEAN CELL VOLUME 91.3 FL (80.0-100.0); MEAN CORPUSCULAR HEMOGLOBIN 31.4 PG (27.0-34.0); MEAN CORPUSCULAR HGB CONC 34.4 % (32.0-36.0); MEAN PLATELET VOLUME 8.9 FL (7.0-11.0); MONO % 11.3 % (0.0-8.0); NEUT % 62.5 % (16.0-70.0); PLATELET COUNT 255 TH/MM3 (150-450); RED BLOOD COUNT 3.48 MIL/MM3 (4.00-5.30); RED CELL DISTRIBUTION WIDTH 13.5 % (11.6-17.2); WHITE BLOOD COUNT 8.4 TH/MM3 (4.0-11.0)
[2018-02-15 06:58] LABS: BICARBONATE 26.6 MEQ/L (21.0-32.0); CALCIUM 8.5 MG/DL (8.5-10.1); CREATININE 0.63 MG/DL (0.50-1.00)
[2018-02-15] MEDS: SODIUM CHLORIDE 0.9% FLUSH 10 ML FLUSH IV FLUSH SCH ×2 (09:00→19:57)
[2018-02-15] MEDS: LISINOPRIL 10 MG TAB PO SCH (09:09)
[2018-02-15] MEDS: PANTOPRAZOLE SODIUM 40 MG VIAL IV PUSH SCH ×2 (09:10→19:56)
[2018-02-15] MEDS: HYDROCHLOROTHIAZIDE 25 MG TAB PO SCH (09:10)
--- NOTE | 2018-02-15 14:58 | HHI.PR ---
Subjective Remarks Patient states that she has a little more energy this morning. She previously had no appetite but is requesting soft foods this morning. She denies any active bleeding. Objective Vitals Vital Signs Date Time Temp Pulse Resp B/P (MAP) Pulse Ox O2 Delivery O2 Flow Rate FiO2 02/15/18 14:00 72 02/15/18 12:12 97.6 80 18 109/71 (84) 95 02/15/18 10:08 92 Nasal Cannula 21 02/15/18 08:12 97.5 75 17 121/76 (91) 97 02/15/18 08:00 Nasal Cannula 2.00 02/15/18 08:00 65 02/15/18 04:54 97 Nasal Cannula 2.00 02/15/18 04:44 95 Nasal Cannula 2.00 02/15/18 04:04 67 02/15/18 04:00 Room Air 02/15/18 04:00 98.3 74 18 110/70 (83) 94 02/15/18 00:04 75 02/15/18 00:00 Room Air 02/15/18 00:00 98.3 87 17 121/59 (79) 91 02/14/18 20:00 98.8 91 17 113/60 (77) 91 02/14/18 20:00 Room Air 02/14/18 20:00 86 02/14/18 16:00 99.3 76 16 118/74 (89) 93 02/14/18 16:00 92 I/O 02/14/18 02/14/18 02/14/18 02/15/18 02/15/18 02/15/18 06:59 14:59 22:59 06:59 14:59 22:59 Intake Total 815 ml 1240 ml 1440 ml 1080 ml Output Total 550 ml 200 ml Balance 265 ml 1240 ml 1440 ml 880 ml Intake Oral 240 ml 1440 ml 120 ml IV Total 815 ml 1000 ml 960 ml Output Urine Total 550 ml 200 ml # Voids 5 # Bowel Movements 2 1 0 Result Diagram: 02/15/18 0553 02/15/18 0553 Objective Remarks GENERAL: Well-nourished, well-developed patient. Pale-appearing, weak, but improving slowly SKIN: Warm and dry. HEAD: Normocephalic. EYES: No scleral icterus. No injection or drainage. NECK: Supple, trachea midline. No JVD or lymphadenopathy. CARDIOVASCULAR: Regular rate and rhythm without murmurs, gallops, or rubs. RESPIRATORY: Breath sounds equal bilaterally. No accessory muscle use. GASTROINTESTINAL: Abdomen soft, non-tender, nondistended. EXTREMITIES: No cyanosis, or edema. NEUROLOGICAL: Awake, alert, and oriented x 3. Non-focal. Procedures 02/13/18 -EGD by Dr. Millan showed multiple medium sized nonbleeding ulcers in the gastric antrum and gastric body, biopsies taken, normal esophagus, normal duodenum A/P Assessment and Plan 62-year-old female presents with increasing weakness, body aches, fever/chills. GI bleed Hemoglobin slowly trending downward Continue on IV Protonix 40 mg bid 02/13/18 -EGD by Dr. Millan showed multiple gastric ulcers, biopsies pending Appreciate gastroenterology consult community-acquired pneumonia Chest x-ray shows right perihilar airspace disease and basilar airspace disease suspicious for infiltrate Radiology recommends close radiographic follow-up recommended to exclude underlying mass Continue IV Levaquin Oxygen as needed Sepsis with UTI Continue IV Levaquin Hypokalemia Replaced previously Patient is on more regular diet at this time, will follow with a.m. labs Hypertension Continue patient's lisionpril, hctz with hold parameters Anxiety/Depression Continue celexa and clonazepam Hypothyroidism Continue levothyroxine DVT Prophylaxis SCDs Discharge Planning Likely needs additional 2 days of hospitalization for IV antibiotics and await cultures. Dexter Thomas MD Feb 15, 2018 14:58
[2018-02-15] MEDS: clonazePAM 1 MG TAB PO SCH (19:57)
[2018-02-15] MEDS: CITALOPRAM HYDROBROMIDE 40 MG TAB PO SCH (19:57)
[2018-02-16] VITALS (11 sets, daily range): BP systolic 100–130; BP diastolic 62–76; PULSE 65–85; RESP 17–22; TEMP 97.2–98.7; O2SAT 92–96
[2018-02-16] MEDS: RESP: ALBUTEROL 2.5 MG/IPRATROPIUM 0.5 MG NEB (SCH) INH ×4 (03:46→20:59)
[2018-02-16] MEDS: LEVOFLOXACIN 750 MG PREMIX INJ 150 ML IV SCH (04:28)
[2018-02-16] MEDS: SODIUM CHLOR 0.9% 1000 ML INJ 1,000 ML IV SCH ×2 (04:31→18:59)
[2018-02-16] MEDS: LEVOTHYROXINE SODIUM 88 MCG TAB PO SCH (05:56)
[2018-02-16 06:17] LABS: AUTOMATED NEUTROPHIL # 5.3 TH/MM3 (1.8-7.7); BASOPHIL % 0.3 % (0.0-2.0); EOSINOPHIL # 0.1 TH/MM3 (0-0.4); EOSINOPHIL % 1.1 % (0.0-4.0); HEMATOCRIT 31.9 % (35.0-46.0); HEMOGLOBIN 10.9 GM/DL (11.6-15.3); LYMPH % 26.7 % (9.0-44.0); LYMPHOCYTE # 2.3 TH/MM3 (1.0-4.8); MEAN CELL VOLUME 90.3 FL (80.0-100.0); MEAN CORPUSCULAR HEMOGLOBIN 30.8 PG (27.0-34.0); MEAN CORPUSCULAR HGB CONC 34.1 % (32.0-36.0); MEAN PLATELET VOLUME 8.7 FL (7.0-11.0); MONO % 9.7 % (0.0-8.0); MONOCYTE # 0.8 TH/MM3 (0-0.9); NEUT % 62.2 % (16.0-70.0); PLATELET COUNT 315 TH/MM3 (150-450); RED BLOOD COUNT 3.53 MIL/MM3 (4.00-5.30); RED CELL DISTRIBUTION WIDTH 13.5 % (11.6-17.2); WHITE BLOOD COUNT 8.6 TH/MM3 (4.0-11.0)
[2018-02-16 06:55] LABS: BICARBONATE 28.9 MEQ/L (21.0-32.0); CALCIUM 8.4 MG/DL (8.5-10.1); CREATININE 0.72 MG/DL (0.50-1.00)
[2018-02-16] MEDS: SODIUM CHLORIDE 0.9% FLUSH 10 ML FLUSH IV FLUSH SCH ×2 (09:00→21:00)
[2018-02-16] MEDS ORDERED: POTASSIUM CHLORIDE 10 MEQ CONTROLLED RELEASE TAB PO ONE (09:00)
[2018-02-16] MEDS: LISINOPRIL 10 MG TAB PO SCH (11:00)
[2018-02-16] MEDS: HYDROCHLOROTHIAZIDE 25 MG TAB PO SCH (11:00)
[2018-02-16] MEDS: PANTOPRAZOLE SODIUM 40 MG VIAL IV PUSH SCH ×2 (11:01→21:24)
--- NOTE | 2018-02-16 14:35 | HHI.PR ---
Subjective Remarks Patient is ambulating with hesitation today, but looking improved compared to lying in bed all day. She says she feels ready to try solid foods. Remains afebrile. Objective Vitals Vital Signs Date Time Temp Pulse Resp B/P (MAP) Pulse Ox O2 Delivery O2 Flow Rate FiO2 02/16/18 11:06 92 21 02/16/18 08:12 97.3 65 17 130/62 (84) 94 02/16/18 04:00 97.2 77 17 123/62 (82) 93 02/16/18 00:00 Nasal Cannula 2.00 02/16/18 00:00 85 02/16/18 00:00 98.7 79 17 100/62 (75) 94 02/15/18 21:43 95 21 02/15/18 20:00 82 02/15/18 20:00 99.5 78 18 115/60 (78) 96 02/15/18 20:00 Nasal Cannula 2.00 02/15/18 16:12 98.2 78 17 114/68 (83) 99 02/15/18 16:00 75 I/O 02/15/18 02/15/18 02/15/18 02/16/18 02/16/18 02/16/18 07:00 15:00 23:00 07:00 15:00 23:00 Intake Total 1080 ml 1000 ml 720 ml 120 ml Output Total 200 ml 500 ml 1200 ml Balance 880 ml 1000 ml 220 ml -1080 ml Intake Oral 120 ml 720 ml 120 ml IV Total 960 ml 1000 ml Output Urine Total 200 ml 500 ml 1200 ml # Voids 2 # Bowel Movements 0 1 0 Result Diagram: 02/16/18 0550 02/16/18 0550 Objective Remarks GENERAL: Well-nourished, well-developed patient. Regaining strength slowly SKIN: Warm and dry. HEAD: Normocephalic. EYES: No scleral icterus. No injection or drainage. NECK: Supple, trachea midline. No JVD or lymphadenopathy. CARDIOVASCULAR: Regular rate and rhythm without murmurs, gallops, or rubs. RESPIRATORY: Breath sounds equal bilaterally. No accessory muscle use. GASTROINTESTINAL: Abdomen soft, non-tender, nondistended. EXTREMITIES: No cyanosis, or edema. NEUROLOGICAL: Awake, alert, and oriented x 3. Non-focal. Procedures 02/13/18 -EGD by Dr. Millan showed multiple medium sized nonbleeding ulcers in the gastric antrum and gastric body, biopsies taken, normal esophagus, normal duodenum A/P Problem List: (1) Community acquired pneumonia ICD Code: J18.9 - Pneumonia, unspecified organism Status: Acute (2) GI bleed ICD Code: K92.2 - Gastrointestinal hemorrhage, unspecified Status: Acute Assessment and Plan 62-year-old female presents with increasing weakness, body aches, fever/chills. GI bleed Hemoglobin Stable 10.6-11.1 Continue on IV Protonix 40 mg bid 02/13/18 -EGD by Dr. Millan showed multiple gastric ulcers, biopsies pending Appreciate gastroenterology consult community-acquired pneumonia Chest x-ray shows right perihilar airspace disease and basilar airspace disease suspicious for infiltrate Radiology recommends close radiographic follow-up recommended to exclude underlying mass Continue IV Levaquin Oxygen as needed Sepsis with UTI Continue IV Levaquin Hypokalemia Replaced again Advancing diet to solid foods Hypertension Continue patient's lisionpril, hctz with hold parameters Anxiety/Depression Continue celexa and clonazepam Hypothyroidism Continue levothyroxine DVT Prophylaxis SCDs Discharge Planning May go home on PO Levaquin when balanced and ambulating reliably. Problem Qualifiers (1) Community acquired pneumonia: Qualified Codes: J18.1 - Lobar pneumonia, unspecified organism (2) GI bleed: Qualified Codes: K92.2 - Gastrointestinal hemorrhage, unspecified Dexter Thomas MD Feb 16, 2018 14:35
[2018-02-16] MEDS: guaiFENesin SOLUTION 200 MG/10 ML CUP PO PRN (21:23)
[2018-02-16] MEDS: CITALOPRAM HYDROBROMIDE 40 MG TAB PO SCH (21:24)
[2018-02-16] MEDS: clonazePAM 1 MG TAB PO SCH (21:24)
[2018-02-17] VITALS (8 sets, daily range): BP systolic 119–140; BP diastolic 66–85; PULSE 53–88; RESP 16–19; TEMP 96.8–98.2; O2SAT 92–99
[2018-02-17] MEDS: SODIUM CHLOR 0.9% 1000 ML INJ 1,000 ML IV SCH ×2 (00:40→21:30)
[2018-02-17] MEDS: LEVOTHYROXINE SODIUM 88 MCG TAB PO SCH (05:33)
[2018-02-17] MEDS: guaiFENesin SOLUTION 200 MG/10 ML CUP PO PRN (05:33)
[2018-02-17] MEDS: LEVOFLOXACIN 750 MG PREMIX INJ 150 ML IV SCH (05:34)
[2018-02-17] MEDS: PANTOPRAZOLE SODIUM 40 MG VIAL IV PUSH SCH ×2 (09:00→21:46)
[2018-02-17] MEDS: LISINOPRIL 10 MG TAB PO SCH (11:11)
[2018-02-17] MEDS: HYDROCHLOROTHIAZIDE 25 MG TAB PO SCH (11:11)
[2018-02-17] MEDS: SODIUM CHLORIDE 0.9% FLUSH 10 ML FLUSH IV FLUSH SCH ×2 (11:15→21:46)
--- NOTE | 2018-02-17 15:34 | HHI.PR ---
Subjective Remarks Patient still complains of dyspnea when she walks further than her hospital room door. Objective Vitals Vital Signs Date Time Temp Pulse Resp B/P (MAP) Pulse Ox O2 Delivery O2 Flow Rate FiO2 02/17/18 12:13 97.8 59 16 140/77 (98) 94 02/17/18 09:59 99 BiPAP 02/17/18 08:12 97.4 58 16 130/66 (87) 92 02/17/18 08:00 96 Nasal Cannula 2.00 21 02/17/18 04:00 53 02/17/18 04:00 Nasal Cannula 2.00 02/17/18 04:00 98.0 60 19 119/76 (90) 96 02/17/18 00:00 98.2 67 18 122/85 (97) 93 02/17/18 00:00 Nasal Cannula 2.00 02/17/18 00:00 88 02/16/18 20:00 Nasal Cannula 2.00 02/16/18 20:00 77 02/16/18 20:00 98.3 67 22 108/76 (87) 93 02/16/18 16:12 98.1 67 17 111/63 (79) 94 02/16/18 16:00 80 02/16/18 15:37 92 21 I/O 02/16/18 02/16/18 02/16/18 02/17/18 02/17/18 02/17/18 07:00 15:00 23:00 07:00 15:00 23:00 Intake Total 120 ml 840 ml 1600 ml Output Total 1200 ml 800 ml 900 ml Balance -1080 ml 40 ml 700 ml Intake Oral 120 ml 840 ml 600 ml IV Total 1000 ml Output Urine Total 1200 ml 800 ml 900 ml # Bowel Movements 0 0 Result Diagram: 02/16/18 0550 02/16/18 0550 Objective Remarks GENERAL: Well-nourished, well-developed patient. Regaining strength slowly SKIN: Warm and dry. HEAD: Normocephalic. EYES: No scleral icterus. No injection or drainage. NECK: Supple, trachea midline. No JVD or lymphadenopathy. CARDIOVASCULAR: Regular rate and rhythm without murmurs, gallops, or rubs. RESPIRATORY: Breath sounds equal bilaterally. No accessory muscle use. GASTROINTESTINAL: Abdomen soft, non-tender, nondistended. EXTREMITIES: No cyanosis, or edema. NEUROLOGICAL: Awake, alert, and oriented x 3. Non-focal. Procedures 02/13/18 -EGD by Dr. Millan showed multiple medium sized nonbleeding ulcers in the gastric antrum and gastric body, biopsies taken, normal esophagus, normal duodenum A/P Problem List: (1) Community acquired pneumonia ICD Code: J18.9 - Pneumonia, unspecified organism Status: Acute (2) GI bleed ICD Code: K92.2 - Gastrointestinal hemorrhage, unspecified Status: Acute Assessment and Plan 62-year-old female presents with increasing weakness, body aches, fever/chills. GI bleed Hemoglobin Stable 10.6-11.1 Continue on IV Protonix 40 mg bid 02/13/18 -EGD by Dr. Millan showed multiple gastric ulcers, biopsies pending Appreciate gastroenterology consult community-acquired pneumonia Chest x-ray shows right perihilar airspace disease and basilar airspace disease suspicious for infiltrate Radiology recommends close radiographic follow-up recommended to exclude underlying mass Continue IV Levaquin Oxygen as needed Sepsis with UTI Continue IV Levaquin Hypokalemia Check for potassium levels with a.m. labs Hypertension Continue patient's lisionpril, hctz with hold parameters Anxiety/Depression Continue celexa and clonazepam Hypothyroidism Continue levothyroxine DVT Prophylaxis SCDs Discharge Planning May go home on PO Levaquin when balanced and ambulating reliably. Problem Qualifiers (1) Community acquired pneumonia: Qualified Codes: J18.1 - Lobar pneumonia, unspecified organism (2) GI bleed: Qualified Codes: K92.2 - Gastrointestinal hemorrhage, unspecified Dexter Thomas MD Feb 17, 2018 15:34
[2018-02-17] MEDS: CITALOPRAM HYDROBROMIDE 40 MG TAB PO SCH (21:44)
[2018-02-17] MEDS: clonazePAM 1 MG TAB PO SCH (21:44)
[2018-02-18] VITALS (9 sets, daily range): BP systolic 113–140; BP diastolic 66–84; PULSE 59–85; RESP 16–18; TEMP 97.3–97.9; O2SAT 93–96
[2018-02-18] MEDS: LEVOFLOXACIN 750 MG PREMIX INJ 150 ML IV SCH (04:42)
[2018-02-18] MEDS: LEVOTHYROXINE SODIUM 88 MCG TAB PO SCH (06:01)
[2018-02-18 07:04] LABS: AUTOMATED NEUTROPHIL # 5.6 TH/MM3 (1.8-7.7); BASOPHIL % 0.4 % (0.0-2.0); EOSINOPHIL # 0.2 TH/MM3 (0-0.4); HEMATOCRIT 32.5 % (35.0-46.0); HEMOGLOBIN 11.2 GM/DL (11.6-15.3); LYMPHOCYTE # 3.3 TH/MM3 (1.0-4.8); MEAN CELL VOLUME 91.3 FL (80.0-100.0); MEAN CORPUSCULAR HEMOGLOBIN 31.4 PG (27.0-34.0); MEAN CORPUSCULAR HGB CONC 34.4 % (32.0-36.0); MEAN PLATELET VOLUME 8.5 FL (7.0-11.0); MONO % 5.6 % (0.0-8.0); MONOCYTE # 0.5 TH/MM3 (0-0.9); PLATELET COUNT 419 TH/MM3 (150-450); RED BLOOD COUNT 3.57 MIL/MM3 (4.00-5.30); RED CELL DISTRIBUTION WIDTH 13.9 % (11.6-17.2); WHITE BLOOD COUNT 9.7 TH/MM3 (4.0-11.0)
[2018-02-18 07:34] LABS: BICARBONATE 31.7 MEQ/L (21.0-32.0); CALCIUM 8.6 MG/DL (8.5-10.1); CREATININE 0.73 MG/DL (0.50-1.00)
[2018-02-18] MEDS: HYDROCHLOROTHIAZIDE 25 MG TAB PO SCH (09:20)
[2018-02-18] MEDS: LISINOPRIL 10 MG TAB PO SCH (09:20)
[2018-02-18] MEDS: PANTOPRAZOLE SODIUM 40 MG VIAL IV PUSH SCH ×2 (09:20→21:10)
[2018-02-18] MEDS: SODIUM CHLORIDE 0.9% FLUSH 10 ML FLUSH IV FLUSH SCH ×2 (09:26→21:10)
--- NOTE | 2018-02-18 16:52 | HHI.PR ---
Subjective Remarks Patient is up in chair today but still remains weak. She states she can ambulate around her room but is not steady enough to begin ambulating in the hallways. Objective Vitals Vital Signs Date Time Temp Pulse Resp B/P (MAP) Pulse Ox O2 Delivery O2 Flow Rate FiO2 02/18/18 12:11 97.6 64 16 118/71 (87) 93 02/18/18 08:11 97.6 59 17 138/69 (92) 93 02/18/18 08:00 85 02/18/18 08:00 96 Nasal Cannula 2.00 21 02/18/18 08:00 78 02/18/18 04:00 97.3 61 18 126/71 (89) 96 02/18/18 00:38 59 02/18/18 00:37 74 02/18/18 00:30 Nasal Cannula 2.00 21 02/18/18 00:00 97.4 64 18 113/66 (82) 96 02/17/18 20:03 63 02/17/18 20:00 96.8 61 18 122/67 (85) 97 I/O 02/17/18 02/17/18 02/17/18 02/18/18 02/18/18 02/18/18 07:00 15:00 23:00 07:00 15:00 23:00 Intake Total 1600 ml 780 ml 240 ml Output Total 900 ml Balance 700 ml 780 ml 240 ml Intake Oral 600 ml 780 ml 240 ml IV Total 1000 ml Output Urine Total 900 ml # Voids 6 2 # Bowel Movements 1 Result Diagram: 02/18/1833 02/18/18 0633 Objective Remarks GENERAL: Well-nourished, well-developed patient. Regaining strength slowly SKIN: Warm and dry. HEAD: Normocephalic. EYES: No scleral icterus. No injection or drainage. NECK: Supple, trachea midline. No JVD or lymphadenopathy. CARDIOVASCULAR: Regular rate and rhythm without murmurs, gallops, or rubs. RESPIRATORY: Breath sounds equal bilaterally. No accessory muscle use. GASTROINTESTINAL: Abdomen soft, non-tender, nondistended. EXTREMITIES: No cyanosis, or edema. NEUROLOGICAL: Awake, alert, and oriented x 3. Non-focal. Procedures 02/13/18 -EGD by Dr. Millan showed multiple medium sized nonbleeding ulcers in the gastric antrum and gastric body, biopsies taken, normal esophagus, normal duodenum A/P Problem List: (1) Community acquired pneumonia ICD Code: J18.9 - Pneumonia, unspecified organism Status: Acute (2) GI bleed ICD Code: K92.2 - Gastrointestinal hemorrhage, unspecified Status: Acute Assessment and Plan 62-year-old female presents with increasing weakness, body aches, fever/chills. GI bleed Hemoglobin Stable 10.6-11.1 Continue on IV Protonix 40 mg bid 02/13/18 -EGD by Dr. Millan showed multiple gastric ulcers, biopsies pending Appreciate gastroenterology consult community-acquired pneumonia Chest x-ray shows right perihilar airspace disease and basilar airspace disease suspicious for infiltrate Radiology recommends close radiographic follow-up recommended to exclude underlying mass Continue IV Levaquin Oxygen as needed Sepsis with UTI Continue IV Levaquin Hypokalemia Improving now that she is on solid food with adequate appetite Hypertension Continue patient's lisionpril, hctz with hold parameters Anxiety/Depression Continue celexa and clonazepam Hypothyroidism Continue levothyroxine DVT Prophylaxis SCDs Discharge Planning May go home on PO Levaquin when balanced and ambulating reliably. Problem Qualifiers (1) Community acquired pneumonia: Qualified Codes: J18.1 - Lobar pneumonia, unspecified organism (2) GI bleed: Qualified Codes: K92.2 - Gastrointestinal hemorrhage, unspecified Dexter Thomas MD Feb 18, 2018 16:52
[2018-02-18] MEDS ORDERED: POTASSIUM CHLORIDE 20 MEQ CONTROLLED RELEASE TAB PO ONE (17:00)
[2018-02-18] MEDS: CITALOPRAM HYDROBROMIDE 40 MG TAB PO SCH (21:11)
[2018-02-18] MEDS: clonazePAM 1 MG TAB PO SCH (21:12)
[2018-02-19] VITALS: BP 130/84; PULSE 62; PULSE 64; RESP 16; TEMP 97.8; O2SAT 92
[2018-02-19] MEDS: SODIUM CHLOR 0.9% 1000 ML INJ 1,000 ML IV SCH (03:30)
[2018-02-19 04:00] VITALS: BP 136/90; PULSE 61; PULSE 63; RESP 16; TEMP 97.9; O2SAT 92
[2018-02-19] MEDS: LEVOTHYROXINE SODIUM 88 MCG TAB PO SCH (06:34)
[2018-02-19 08:08] VITALS: BP 145/71; PULSE 62; RESP 16; TEMP 97.5; O2SAT 92
[2018-02-19] MEDS ORDERED: LEVOFLOXACIN 750 MG TAB PO SCH (09:00)
[2018-02-19] MEDS: HYDROCHLOROTHIAZIDE 25 MG TAB PO SCH (09:12)
[2018-02-19] MEDS: PANTOPRAZOLE SODIUM 40 MG VIAL IV PUSH SCH (09:12)
[2018-02-19] MEDS: SODIUM CHLORIDE 0.9% FLUSH 10 ML FLUSH IV FLUSH SCH (09:12)
[2018-02-19] MEDS: LISINOPRIL 10 MG TAB PO SCH (09:13)
[2018-02-19 12:08] VITALS: BP 134/72; PULSE 58; RESP 16; TEMP 97.4; O2SAT 97
[2018-02-19] MEDS ORDERED: PANT40TA3 PO (12:13)
[2018-02-19] MEDS ORDERED: LEVA750T9 PO (12:13)
--- NOTE | 2018-02-19 12:16 | HHI.DS ---
Discharge Summary Admission Date Feb 12, 2018 at 20:59 Discharge Date: Feb 19, 2018 Admitting Diagnosis CAP; GI bleed; Syncope (1) Community acquired pneumonia ICD Code: J18.9 - Pneumonia, unspecified organism Status: Acute (2) GI bleed ICD Code: K92.2 - Gastrointestinal hemorrhage, unspecified Status: Acute Procedures 02/13/18 -EGD by Dr. Millan showed multiple medium sized nonbleeding ulcers in the gastric antrum and gastric body, biopsies taken, normal esophagus, normal duodenum Brief History - From Admission 62-year-old female with a past medical history significant for hypertension, hypothyroidism, anxiety/depression and ADHD presents to the emergency department for the evaluation of increasing weakness, body aches and fever/ chills. The patient reports she started the Miriam diet open (no sugar, lean protein) approximately 2 weeks ago. She states she started to feel bad on with body aches and had a syncopal event on Monday that she attributed to hypoglycemia as she had not had much to eat. EMS was called to the patient' s house however she did not receive any further medical treatment at that time. She has continued to have fever/chills and body aches. She reports an intermittent nonproductive cough. Positive dark/tarry stools for the past 2-3 days. She denies any chest pain or shortness of breath. No nausea/vomiting/ diarrhea. No lateralizing signs/symptoms. CBC/BMP: 02/18/18 0633 02/18/18 0633 Significant Findings Laboratory Tests Test 02/18/18 06:33 Red Blood Count 3.57 MIL/MM3 (4.00-5.30) Hemoglobin 11.2 GM/DL (11.6-15.3) Hematocrit 32.5 % (35.0-46.0) Blood Urea Nitrogen 6 MG/DL (7-18) Potassium Level 3.1 MEQ/L (3.5-5.1) Estimat Glomerular Filtration Rate 81 ML/MIN (>89) PE at Discharge GENERAL: Well-nourished, well-developed patient. Regaining strength slowly SKIN: Warm and dry. HEAD: Normocephalic. EYES: No scleral icterus. No injection or drainage. NECK: Supple, trachea midline. No JVD or lymphadenopathy. CARDIOVASCULAR: Regular rate and rhythm without murmurs, gallops, or rubs. RESPIRATORY: Breath sounds equal bilaterally. No accessory muscle use. GASTROINTESTINAL: Abdomen soft, non-tender, nondistended. EXTREMITIES: No cyanosis, or edema. NEUROLOGICAL: Awake, alert, and oriented x 3. Non-focal. Hospital Course This is a 62-year-old female who was sent to the ER by her primary care physician after she visited following a fall at home, generalized weakness. Her primary care physician was suspicious of a GI bleed and as it turns out patient did have multiple ulcers in her stomach. She has been treated on Protonix and her symptoms resolved quickly from that standpoint. She however on admission was found to have community-acquired pneumonia. This is the predominant cause of her generalized weakness and fall. Over a period of approximately 1 week she has been recovering slowly but today she is able to ambulate down the hallway, she has been off of oxygen for a couple days, she feels strong enough today to be able to do the daily chores of life. I explained to her that she will likely need to be on Protonix for a number of months. The Levaquin for 1 more week oral medication. She has a follow-up scheduled with her primary care physician. Pt Condition on Discharge: Good Discharge Disposition: Discharge Home Discharge Time: <= 30 minutes Discharge Instructions DIET: Follow Instructions for: As Tolerated, No Restrictions Activities you can perform: Regular-No Restrictions Dexter Thomas MD Feb 19, 2018 12:16
== END 2018-02-19 14:27 | disposition home or self-care (01) | DRG 871 ==
LOC: NEPE 17:05 → NEDA 20:59 → N04A 22:11
PROVIDERS: ADMIT Family Medicine; ATTEND Family Medicine
PROC: 0DB78ZX Excision of Stomach, Pylorus, Via Natural or Artificial Opening Endoscopic, Diagnostic (ICD-10-PCS; 2018-02-13)
PROC: 0DB68ZX Excision of Stomach, Via Natural or Artificial Opening Endoscopic, Diagnostic (ICD-10-PCS; principal; 2018-02-13 12:57)
DX: A41.9 Sepsis, unspecified organism (principal); J18.9 Pneumonia, unspecified organism; N17.9 Acute kidney failure, unspecified; I95.9 Hypotension, unspecified; K25.4 Chronic or unspecified gastric ulcer with hemorrhage; E87.1 Hypo-osmolality and hyponatremia; E86.0 Dehydration; N39.0 Urinary tract infection, site not specified; I10 Essential (primary) hypertension; E03.9 Hypothyroidism, unspecified; E87.6 Hypokalemia; F90.9 Attention-deficit hyperactivity disorder, unspecified type; F32.9 Major depressive disorder, single episode, unspecified; F41.9 Anxiety disorder, unspecified; Z80.0 Family history of malignant neoplasm of digestive organs; Z88.1 Allergy status to other antibiotic agents
CPT/HCPCS: 71045; 80048; 80053; 81001; 82140; 82550; 82941; 83605; 83690; 83735; 85025; 85610; 85730; 86850; 86900; 86901; 87040; 87086; 87449; 88305; 88312; 93005; 94150; 94640; 94664; 96360; C9113; J0456; J1956; J7030; J7050